=== PATIENT | male | born 1975 | race Caucasian/White ===

== ENCOUNTER 2020-09-01 10:12 | Outpatient (CLI) | payer BC | END 2020-09-01 10:13 | disposition home or self-care (01) | LOC: CSHWCC 10:12 | PROVIDERS: ATTEND Nurse Practitioner Family | DX: T21.22XA Burn of second degree of abdominal wall, initial encounter (principal); T23.231A Burn of second degree of multiple right fingers (nail), not including thumb, initial encounter; E11.628 Type 2 diabetes mellitus with other skin complications; G89.11 Acute pain due to trauma; I10 Essential (primary) hypertension; X06.2XXA Exposure to ignition of other clothing and apparel, initial encounter; Z91.19 Patient's noncompliance with other medical treatment and regimen | CPT/HCPCS: 16020; 99203; G0463 ==